=== PATIENT | female | born 1995 | race Two or more races ===

== ENCOUNTER 2019-08-04 16:13 | Observation (INO) | payer SELFPAY ==
[2019-08-04 17:06] LABS: BILIRUBIN,URINE NEGATIVE (NEG); CLARITY,URINE CLOUDY; COLOR,URINE YELLOW; NITRITE,URINE NEGATIVE (NEG); PROTEIN,URINE 30 mg/dL (NEG-TRACE)
[2019-08-04 17:18] LABS: BACTERIA,URINE MANY /HPF (0-FEW); RBC,URINE 0 /HPF (0-2); SQUAMOUS EPITHELIAL CELL,UR MANY /LPF; WBC,URINE TNTC /HPF (0-4)
[2019-08-04 18:11] LABS: BASO % 0 % (0-3); EOS # 0.1 x10^3/uL (0.0-0.7); EOS % 1 % (0-3); HEMATOCRIT 38.5 % (36.0-47.0); HEMOGLOBIN 12.9 g/dL (12.0-15.5); LYMPH # 2.2 x10^3/uL (1.0-4.8); LYMPH % 23 % (24-48); MEAN CORPUSCULAR HEMOGLOBIN 28 pg (25-35); MEAN CORPUSCULAR HGB CONC 33 g/dL (31-37); MEAN CORPUSCULAR VOLUME 85 fL (79-100); MONO # 0.8 x10^3/uL (0.0-1.1); MONO % 9 % (0-9); NEUT # 6.7 x10^3/uL (1.8-7.7); NEUT % 68 % (31-73); PLATELET COUNT 291 x10^3/uL (140-400); RED BLOOD COUNT 4.53 x10^6/uL (3.50-5.40); RED CELL DISTRIBUTION WIDTH 13.6 % (11.5-14.5); WHITE BLOOD COUNT 9.8 x10^3/uL (4.0-11.0)
[2019-08-04] MEDS ORDERED: cefTRIAXone IV Push 1 GM VIAL. IVP ONE (18:45)
[2019-08-04] MEDS ORDERED: IV RINGERS,LACTATED 1000ML 1,000 ML IV SCH (19:00)
--- NOTE | 2019-08-05 07:49 | RAD ---
Biophysical profile: Clinical indications: No records. well-being. Uncertain gestational age. Findings: A single intrauterine fetus is seen in cephalic position. heart rate is 143 beats per minute. BPD is 8.47 cm which equals 34 weeks 1 day. HC is 31.81 cm which equals 35 weeks 6 days. AC is 31.73 cm which equals 35 weeks 5 days. FL is 6.98 cm which equals 35 weeks 6 days. Average gestational age by ultrasound is 35 weeks 3 days +/- 3 weeks with an EDC of September 05, 2019. Estimated weight is 5 lbs and 15 oz. breathing movements: 2. motion: 2. tone: 2. Amniotic fluid volume: 2. Therefore, the biophysical profile score is 8 out of 8. Cervical length-not visualized. BR[place] using the 4 quadrant method is 14.2 cm. Grade 0 posterior and fundal placenta is seen. Impression: Biophysical profile score is 8 out of 8. Electronically signed by: Dallas Clifford MD (08/05/2019 7:46 AM) [facility]
== END 2019-08-04 20:32 | disposition home or self-care (01) ==
LOC: 3 SO LND 16:13
PROVIDERS: ADMIT Obstetrics & Gynecology; ATTEND Obstetrics & Gynecology
DX: O26.893 Other specified pregnancy related conditions, third trimester (principal); R10.9 Unspecified abdominal pain; Z3A.36 36 weeks gestation of pregnancy
CPT/HCPCS: 36415; 76819; 81001; 85025; 86592; 86850; 86900; 86901; 87086; 87653; 96374; G0378; G0379; J0696; J7120